=== PATIENT | female | born 1950 | race Caucasian/White ===

== ENCOUNTER 2023-02-24 07:08 | Day surgery (SDC) | payer MEDICARE ==
[2023-02-23 10:57] VITALS: BMI 30.2
[~2023-02-24 07:08] MED LIST: Enoxaparin 25 MG, EPINEPHrine 0.3 MG in Ophthalmic Irrigation Solution 500 ML FS SCH; Midazolam HCl 2 mg/2 ml Vial ONE; fentaNYL 50 mcg/mL 1 mL Vial ONE
[2023-02-24] MEDS ORDERED: PHENYLephrine 2.5% Ophth Soln 15 ml Bottle ONE (08:22)
[2023-02-24] MEDS ORDERED: Cyclopentolate 0.5% Opth Drops 15 ML BOT ONE (08:23)
[2023-02-24] MEDS ORDERED: Triamcinolone 40 MG/ML VIAL ONE (09:00)
[2023-02-24] MEDS ORDERED: Lidocaine 1% PF 5 ML VIAL ONE (09:00)
[2023-02-24] MEDS ORDERED: CEFAZOLIN 1 GM VIAL ONE (09:00)
[2023-02-24] MEDS ORDERED: Lidocaine 4% PF 5 ML AMP ONE (09:00)
[2023-02-24] MEDS ORDERED: Maxitrol 0.1% Opth Oint 3.5 GM TUBE ONE (09:00)
[2023-02-24] MEDS ORDERED: PROPOFOL 200 MG/20 ML VIAL ONE (09:00)
[2023-02-24] MEDS ORDERED: Indocyanine Green 25 MG/10 ML VIAL ONE (09:00)
[2023-02-24] MEDS ORDERED: Bupivacaine 0.75% 10 ML VIAL ONE (09:00)
== END 2023-02-24 10:48 | disposition home or self-care (01) ==
LOC: SDC 07:08
PROVIDERS: ATTEND Ophthalmology Retina Specialist
PROC: 08T43ZZ Resection of Right Vitreous, Percutaneous Approach (ICD-10-PCS; principal; 2023-02-24)
PROC: 08NE3ZZ Release Right Retina, Percutaneous Approach (ICD-10-PCS; 2023-02-24)
DX: H35.341 Macular cyst, hole, or pseudohole, right eye (principal)
CPT/HCPCS: 67025; 67042; J3010; J0171; J0690; J1650; J2250; J2704; J3301; J3490